=== PATIENT | female | born 1995 | race Hispanic/Latino ===

== ENCOUNTER 2019-03-02 09:34 | Emergency (ER) | payer MEDICAID, OTHER ==
[2019-03-02] MEDS ORDERED: METOCLOPRAMIDE 10 MG/2 ML VIAL ONE (09:47)
[2019-03-02] MEDS ORDERED: SODIUM CHLORIDE 0.9% 1000ML 1,000 ML IV ONE (09:48)
[2019-03-02] MEDS ORDERED: ACETAMINOPHEN 325 MG TAB ONE (09:48)
[2019-03-02 10:08] LABS: BASOPHILS % (AUTO) 0.8 % (0.0-5.0); HEMATOCRIT 41.4 % (36-48); LYMPHOCYTES % (AUTO) 31.6 % (21.0-51.0); MEAN CORPUSCULAR HEMOGLOBIN 32.1 pg (27.0-33.0); MEAN CORPUSCULAR HGB CONC 34.1 g/dL (32.0-36.0); MEAN CORPUSCULAR VOLUME 94.1 fL (79-99); MONOCYTES % (AUTO) 8.7 % (3.0-13.0); NEUTROPHILS % (AUTO) 56.9 % (40.0-77.0); PLATELET COUNT (AUTO) 245 K/uL (130-400); RED CELL DISTRIBUTION WIDTH 12.9 % (11.0-15.5)
[2019-03-02 10:23] LABS: CREATININE 0.6 mg/dL (0.5-1.5); POTASSIUM 3.7 mmol/L (3.5-5.1)
[2019-03-02 10:31] LABS: APPEARANCE,URINE Clear (CLEAR); BILIRUBIN,URINE Negative (NEGATIVE); COLOR,URINE Yellow (YELLOW); GLUCOSE, URINE (UA) Negative (NEGATIVE); KETONES,URINE Negative (NEGATIVE); LEUKOCYTE ESTERASE ,URINE Negative (NEGATIVE); NITRATE,URINE Negative (NEGATIVE); OCCULT BLOOD,URINE Negative (NEGATIVE); PH,URINE 8.5 (5.0-8.0); PROTEIN,URINE Negative (NEGATIVE); UROBILINOGEN,URINE 0.2 mg/dL (0.2-1.0)
[2019-03-02 10:51] LABS: ALBUMIN 3.9 g/dL (3.5-5.0); BILIRUBIN,TOTAL 0.5 mg/dL (0.2-1.0); TOTAL PROTEIN, SERUM 7.6 g/dL (6.0-8.3)
== END 2019-03-02 12:52 | disposition home or self-care (01) ==
LOC: EDH 09:34
DX: O26.891 Other specified pregnancy related conditions, first trimester (principal); G44.209 Tension-type headache, unspecified, not intractable; F45.8 Other somatoform disorders; R07.89 Other chest pain; R10.9 Unspecified abdominal pain; Z3A.01 Less than 8 weeks gestation of pregnancy
CPT/HCPCS: 36415; 76817; 80053; 81003; 83690; 84702; 85025; 93005; 96374; 99285; J2765; J7030

== ENCOUNTER 2019-10-05 17:47 | Observation (INO) | payer MEDICAID ==
[~2019-10-05] VITALS: Ht 152.4 cm; Wt 96.2 kg
[2019-10-05 19:02] LABS: APPEARANCE,URINE Clear (CLEAR); BILIRUBIN,URINE Negative (NEGATIVE); COLOR,URINE Yellow (YELLOW); GLUCOSE, URINE (UA) Negative (NEGATIVE); KETONES,URINE 40 mg/dL (NEGATIVE); LEUKOCYTE ESTERASE ,URINE Small (NEGATIVE); NITRATE,URINE Negative (NEGATIVE); OCCULT BLOOD,URINE Negative (NEGATIVE); PH,URINE 6.5 (5.0-8.0); PROTEIN,URINE Negative (NEGATIVE)
[2019-10-05] MEDS ORDERED: TERBUTALINE SULFATE VIAL 1MG/ML SQ ONE (19:16)
[2019-10-05] MEDS ORDERED: LACTATED RINGERS 1000ML 1,000 ML IV ONE (19:16)
[2019-10-05 19:28] LABS: BACTERIA,URINE Few /HPF (None Seen); MUCUS,URINE Few LPF (None Seen); RBC,URINE 0-1 /HPF (0-1); SQUAMOUS EPITHELIAL CELL,UR Moderate /HPF (0-2)
[2019-10-05] MEDS ORDERED: MAGNESIUM SULFATE 1,000 ML IV PRN (20:23)
[2019-10-05] MEDS ORDERED: AMPICILLIN 2GM+NS 100ML 100 ML IV ONE (20:27)
[2019-10-05] MEDS ORDERED: MAGNESIUM SULFATE 1,000 ML IV ONE (20:27)
[2019-10-05] MEDS ORDERED: MAGNESIUM 4GM PREMIX 100ML 100 ML IV ONE (20:27)
[2019-10-05] MEDS ORDERED: CALCIUM GLUCONATE 1 GM/10 ML VIAL IV PRN (20:30)
[2019-10-05] MEDS ORDERED: AMPICILLIN 2GM+NS 100ML 100 ML IV SCH (20:30)
[2019-10-05] MEDS ORDERED: TERBUTALINE SULFATE VIAL 1MG/ML SQ SCH (20:30)
[2019-10-05] MEDS ORDERED: MAGNESIUM 4GM PREMIX 100ML 100 ML IV SCH (21:00)
[2019-10-05] MEDS ORDERED: LACTATED RINGERS 1000ML 1,000 ML IV PRN (21:11)
[2019-10-05] MEDS ORDERED: ACETAMINOPHEN 325 MG TAB PO PRN (21:15)
== END 2019-10-05 23:58 | disposition left against medical advice (07) ==
LOC: EDH 17:47 → LDH 18:00
PROVIDERS: ADMIT Obstetrics & Gynecology; ATTEND Obstetrics & Gynecology
DX: O26.893 Other specified pregnancy related conditions, third trimester (principal); R10.2 Pelvic and perineal pain; Z3A.35 35 weeks gestation of pregnancy
CPT/HCPCS: 81001; 96365; 96367; 96372; 96375; 99284; G0378 ×6; J0290; J3105; J3475 ×2; J7120 ×2; 96360; 96361

== ENCOUNTER 2019-10-14 11:03 | Observation (INO) | payer MEDICAID ==
[~2019-10-14] VITALS: Ht 152.4 cm; Wt 95.7 kg
[2019-10-14] MEDS ORDERED: LACTATED RINGERS 1000ML 1,000 ML IV PRN (12:09)
[2019-10-14 12:12] VITALS: BP 120/72
== END 2019-10-14 12:35 | disposition home or self-care (01) ==
LOC: EDH 11:03 → LDH 11:35
PROVIDERS: ADMIT Obstetrics & Gynecology; ATTEND Obstetrics & Gynecology
DX: O60.03 Preterm labor without delivery, third trimester (principal); Z3A.36 36 weeks gestation of pregnancy
CPT/HCPCS: 96360; 99284; G0378; J7120

== ENCOUNTER 2019-10-27 22:00 | Inpatient (IN) | payer MEDICAID ==
[~2019-10-27] VITALS: Ht 152.4 cm; Wt 98.0 kg
[2019-10-27 22:37] LABS: APPEARANCE,URINE Clear (CLEAR); BILIRUBIN,URINE Negative (NEGATIVE); COLOR,URINE Yellow (YELLOW); GLUCOSE, URINE (UA) Negative (NEGATIVE); KETONES,URINE Negative (NEGATIVE); LEUKOCYTE ESTERASE ,URINE Small (NEGATIVE); NITRATE,URINE Negative (NEGATIVE); OCCULT BLOOD,URINE Negative (NEGATIVE); PROTEIN,URINE Negative (NEGATIVE)
[2019-10-27 22:52] LABS: MEAN CORPUSCULAR HEMOGLOBIN 27.9 pg (27.0-33.0); MEAN CORPUSCULAR HGB CONC 32.4 g/dL (32.0-36.0); MEAN CORPUSCULAR VOLUME 86.2 fL (79-99); RED BLOOD CELL COUNT(AUTO) 4.41 MIL/uL (4.00-5.50); WHITE BLOOD COUNT (AUTO) 9.4 K/uL (4.8-10.8)
[2019-10-27 22:57] LABS: BACTERIA,URINE Rare /HPF (None Seen); MUCUS,URINE Moderate LPF (None Seen); RBC,URINE None Seen /HPF (0-1); TRANSITIONAL EPI CELLS,URINE Few /HPF (None Seen); WBC,URINE 0-1 /HPF (0-1)
[2019-10-27 22:58] LABS: HYALINE CASTS, URINE 0-1 /LPF (0-1 /LPF)
[2019-10-28] MEDS ORDERED: ACETAMINOPHEN 325 MG TAB ONE (00:51)
[2019-10-28] MEDS: LACTATED RINGERS 1000ML 1,000 ML IV PRN ×2 (00:54→05:17)
[2019-10-28] MEDS ORDERED: ACETAMINOPHEN 325 MG TAB PO ONE (01:00)
[2019-10-28] MEDS ORDERED: CEFAZOLIN SODIUM 1 GM VIAL IVP PRN (01:15)
[2019-10-28] MEDS ORDERED: LACTATED RINGERS 1000ML 1,000 ML IV SCH (01:15)
[2019-10-28] MEDS ORDERED: CALDOLOR 800MG+NS 250ML 250 ML IV PRN (01:15)
[2019-10-28] MEDS ORDERED: MEPERIDINE-PF 50 MG/ML SYG IVP ONE (02:30)
[2019-10-28] MEDS ORDERED: PROMETHAZINE HCL 25 MG/ML 1ML AMPULE IM SCH (02:30)
[2019-10-28 03:37] LABS: AMPHET/METH SCREEN,URINE NEGATIVE (NEGATIVE); BARBITURATE SCREEN, URINE NEGATIVE (NEGATIVE); BENZODIAZEPINES SCREEN,URINE NEGATIVE (NEGATIVE); CANNABINOID SCREEN,URINE NEGATIVE (NEGATIVE); COCAINE SCREEN,URINE NEGATIVE (NEGATIVE); OPIATE SCREEN,URINE NEGATIVE (NEGATIVE); PHENCYCLIDINE SCREEN,URINE NEGATIVE (NEGATIVE)
[2019-10-28] MEDS ORDERED: DEXAMETHASONE SOD PHOSPHATE 10MG/ML 1ML VIAL ONE (09:18)
[2019-10-28] MEDS ORDERED: PHENYLEPHRINE HCL 10 MG/ML 1ML VIAL IV ONE (09:18)
[2019-10-28] MEDS ORDERED: ONDANSETRON HCL 4 MG/2 ML VIAL ONE (09:19)
[2019-10-28] MEDS ORDERED: OXYTOCIN 10 USP UNITS/ML ONE ×2 (09:19→10:04)
[2019-10-28] MEDS ORDERED: EPHEDRINE SULFATE 50 MG/ML AMPULE ONE (09:19)
[2019-10-28] MEDS ORDERED: DURAMORPH PF1 MG/ML 10ML AMP IV ONE (09:19)
[2019-10-28] MEDS ORDERED: CEFAZOLIN SODIUM 1 GM VIAL IVP ONE (09:26)
[2019-10-28] MEDS ORDERED: PROMETHAZINE HCL 25 MG/ML 1ML AMPULE IM PRN (10:30)
[2019-10-28] MEDS ORDERED: SODIUM CHLORIDE 0.9% 10 ML VIAL IVP PRN (10:30)
[2019-10-28] MEDS ORDERED: DEXTROSE 5 %-0.45 % NACL 1,000 ML IV PRN (10:30)
[2019-10-28] MEDS ORDERED: MEPERIDINE-PF 75 MG/ML SYG IM PRN (10:30)
[2019-10-28] MEDS ORDERED: OXYTOCIN-LR 20 UNITS/1000 ML 1,000 ML IV PRN (10:30)
[2019-10-28 11:55] LABS: RAPID PLASMA REAGIN NONREACTIVE (NONREACTIVE)
[2019-10-28 11:59] VITALS: BP 108/56
[2019-10-28] MEDS ORDERED: PNV1TABL17 PO (12:46)
--- NOTE | 2019-10-28 15:40 | NUR ---
PERICARE GIVEN AT THIS TIME ASSISTED BY CUONG OTT. FUNDUS FIRM, BLEEDING SCANT, NO CLOTS EXPELLED. PATIENT LIFTED HIPS WITHOUT DIFFICULTY. NO PAIN REPORTED AT THIS TIME.
[2019-10-28 16:49] VITALS: BP 110/54
[2019-10-28] MEDS: CALDOLOR 800MG+NS 250ML 250 ML IV SCH (18:06)
[2019-10-28 19:27] VITALS: BP 110/72
[2019-10-28] MEDS ORDERED: EPHEDRINE SULFATE 50 MG/ML AMPULE IVP PRN (19:45)
[2019-10-28] MEDS ORDERED: NALOXONE HCL 0.4 MG/1 ML ML IVP PRN ×3 (19:45)
[2019-10-28] MEDS ORDERED: ONDANSETRON HCL 4 MG/2 ML VIAL IVP PRN (19:45)
[2019-10-28] MEDS ORDERED: DiphenhydrAMINE HCL 50 MG/ML VIAL IVP PRN (19:45)
--- NOTE | 2019-10-28 23:17 | NUR ---
PT'S REPORT GIVEN TO Oskar MENON RN. PT DENIED PAIN AND DISCOMFORT.
--- NOTE | 2019-10-28 23:24 | NUR ---
RECEIVED REPORT FROM GINETTE BALDERAS; [employer]LO[employer].
[2019-10-29] VITALS: BP 102/56
--- NOTE | 2019-10-29 00:30 | NUR ---
pt. is her baby at this time. Good bonding noted. no complained of pain at this time. pt. was made aware of the CBC in the morning and the Caldolor #3 dose will be given at 0200.
[2019-10-29] MEDS: CALDOLOR 800MG+NS 250ML 250 ML IV SCH (02:03)
--- NOTE | 2019-10-29 02:03 | NUR ---
PT. STOOD UP AT THE SIDE OF THE BED, DEEP BREATH AND STEP FORWARD ALTERNATE WITH THE OTHER LEG FOR AT LEAST 5 MINS. PT. TOLERATED WELL.
--- NOTE | 2019-10-29 02:03 | NUR ---
CALDOLOR 800 MG. IVPB. THIS IS THE LAST OR THIRD DOSE GIVEN. PT. TOLERATED WELL.
--- NOTE | 2019-10-29 02:10 | NUR ---
ASSISTED THE PT. TO SIT UP AND DANGLE HER LEGS AT THE SIDE OF THE BED. PT. TOLERATED WELL.
--- NOTE | 2019-10-29 02:20 | NUR ---
SMALL LOCHIA RUBRA NOTED WHILE PT. STOOD UP. PAMELA CARE DONE. NO BLOOD CLOTS. PAMELA PAD APPLIED. PT. FELT COMFORTABLE AT THIS TIME. PT. VERBALIZED THAT HER PAIN IS MILD AND SHE DOESN'T WANT PAIN MEDICINE AT THIS TIME.
--- NOTE | 2019-10-29 03:00 | NUR ---
INCENTIVE SPIROMETER GIVEN TO PT. AND EXPLAINED THE RATIONALE OR IMPORTANCE OF DOING IT. PT. VERBALIZED UNDERSTANDING. VOLUME OF AIR INHALED IS 2500 CC. PT. TOLERATED WELL.
[2019-10-29 04:00] VITALS: BP 108/62
[2019-10-29 07:08] LABS: HEMATOCRIT 30.1 % (36-48); MEAN CORPUSCULAR HEMOGLOBIN 28.4 pg (27.0-33.0); MEAN CORPUSCULAR HGB CONC 32.2 g/dL (32.0-36.0); MEAN CORPUSCULAR VOLUME 88.3 fL (79-99); RED BLOOD CELL COUNT(AUTO) 3.41 MIL/uL (4.00-5.50); RED CELL DISTRIBUTION WIDTH 13.1 % (11.0-15.5); WHITE BLOOD COUNT (AUTO) 15.4 K/uL (4.8-10.8)
[2019-10-29 07:14] LABS: HEPATITIS Bs ANTIGEN SCREEN P Negative (Negative)
[2019-10-29 07:45] VITALS: BP 111/60
--- NOTE | 2019-10-29 08:00 | NUR ---
ELIMINATION F/C REMOVED PER ASEPTIC TECHNIQUE C 500CC CLEAR URINE DISCARDED.
--- NOTE | 2019-10-29 08:10 | NUR ---
NUTRITION PT GIVEN REGULAR FOOD TRAY AND TAKEN WELL.
--- NOTE | 2019-10-29 08:30 | NUR ---
ELIMINATION/COMFORT PT ASSISTED TO BR. VOIDED 200CC CLEAR URINE. PADS CHANGED. PT ASSISTED TO BEDSIDE CHAIR. TOLERATED AMBULATION WELL.
[2019-10-29] MEDS ORDERED: HYDROCODONE/ACETAMINOPHEN 5/325 MG TAB PO PRN (09:15)
[2019-10-29] MEDS ORDERED: BISACODYL 10 MG SUPP.RECT RC PRN (09:15)
[2019-10-29] MEDS ORDERED: IBUPROFEN 800 MG TAB PO SCH ×2 (09:15→10:30)
[2019-10-29] MEDS ORDERED: ACETAMINOPHEN EXTRA STRENGTH 500 MG TABLET PO PRN (09:15)
[2019-10-29] MEDS ORDERED: SIMETHICONE 80 MG TAB.CHEW PO PRN (09:15)
[2019-10-29] MEDS ORDERED: ACETAMINOPHEN-CODEINE 300/30MG TAB PO PRN (09:15)
[2019-10-29] MEDS ORDERED: DOCUSATE SODIUM 100 MG CAP PO ONE (09:27)
[2019-10-29] MEDS ORDERED: IBUPROFEN 800 MG TAB ONE (09:27)
--- NOTE | 2019-10-29 09:30 | NUR ---
SCHEDULED MEDICATIONS GIVEN
[2019-10-29 11:59] VITALS: BP 115/58
--- NOTE | 2019-10-29 13:05 | NUR ---
Safety pt discharged per w/c c baby in arms to private car. Pt tolerated well.
[2019-10-29] MEDS ORDERED: DOCUSATE SODIUM 100 MG CAP PO SCH (21:00)
== END 2019-10-29 13:12 | disposition home or self-care (01) | DRG 539 ==
LOC: EDH 22:00 → LDH 22:17 → WSH 10-28 11:55
PROVIDERS: ADMIT Obstetrics & Gynecology; ATTEND Obstetrics & Gynecology
PROC: 0UB70ZZ Excision of Bilateral Fallopian Tubes, Open Approach (ICD-10-PCS; 2019-10-28)
PROC: 10D00Z1 Extraction of Products of Conception, Low, Open Approach (ICD-10-PCS; principal; 2019-10-28 09:00)
DX: O26.893 Other specified pregnancy related conditions, third trimester (principal); O69.81X0 Labor and delivery complicated by cord around neck, without compression, not applicable or unspecified; Z30.2 Encounter for sterilization; Z37.0 Single live birth; Z3A.38 38 weeks gestation of pregnancy
CPT/HCPCS: 36415; 59510; 80305; 81001; 85027; 86592; 86701; 86850; 86900; 86901; 87340; 87390; 88302; A4344; G0378; J0690; J1100; J1741; J2274; J2370; J2405; J2590; J3490; J7120

== ENCOUNTER 2025-04-14 01:38 | Emergency (ER) | payer SELFPAY ==
[~2025-04-14] VITALS: Ht 152.4 cm; Wt 99.8 kg
[2025-04-14 01:39] VITALS: BP 134/65; PULSE 84; RESP 18; TEMP 97.5
--- NOTE | 2025-04-14 01:41 | NUR ---
UA CUP PROVIDED
--- NOTE | 2025-04-14 02:54 | ERN ---
General Chief Complaint: Back Pain-No Injury Stated Complaint: BACK PAIN Time Seen by MD: 01:40 Time Seen by Midlevel: 01:40 Source: patient History of Present Illness Initial Comments Patient is a 29-year-old female presenting to the emergency department with left gluteal pain that radiates down to her left leg and wraps around to the front of her left thigh. Denies any injury to the area. Denies falling. Denies any other symptoms at this time Allergies: Coded Allergies: No Known Drug Allergies (Unverified Allergy, Unknown, 10/05/19) Home Meds Reported Medications Pnv Cmb#21/Iron/Folic Acid ( Complete Caplet) 1 Each Tablet, 1 EACH PO DAILY, TAB 10/28/19 Past Medical History Past Medical History: No Pertinent History Past Surgical History: None Female( History) LMP: Mar 29, 2025 ROS Dictation CONSTITUTIONAL: Negative except for HPI HEAD/FACE: Negative except for HPI EENT: Negative except for HPI RESPIRATORY: Negative except for HPI GASTROINTESTINAL/ABDOMINAL: Negative except for HPI GENITOURINARY: Negative except for HPI MUSCULOSKELETAL: Negative except for HPI INTEGUMENTARY: Negative except for HPI NEUROLOGICAL/PSYCH: Negative except for HPI HEMATOLOGIC/LYMPHATIC: Negative except for HPI All Systems Negative, Except as noted above. 13 point review of systems assessed and all negative except for above. Physical Exam Physical Exam Dictation Vital Signs reviewed General Appearance: Alert, oriented x 3, no acute distress, well developed, nourished. Head and Face: non-traumatic. Eyes: PERRL, pink conjunctivas, eyelid no trauma, anterior chamber with arcus senilis. Ears: Pinnas intact and no signs of trauma or erythema ear canals clear and no d ischarge TM no erythema Nose: No discharge, no bleeding. Oropharynx: Mouth normal, tongue pink, pharynx clear,no erythema, tonsils no exudates, no abscesses noted, mucous membrane moist Neck: Supple, non-tender, no thyromegaly, no masses, no JVD, no bruits Breast:Deferred Chest:No tenderness, no crepitus, no paradoxical movement, no retractions Lungs:Clear, well-ventilated, symmetric, no rales, no wheezing, no rhonchi, no stridor, good breath sounds bilaterally Heart: Regular rate, regular rhythm, no murmur, no gallops Vascular: no peripheral edema, Abdomen: Soft, positive bowel sounds, nondistended, no guarding, nontender, no rebound, no masses no hepatomegaly, no splenomegaly, no Lr's sign, no hernias. Rectal: Deferred Genital: Deferred Neurological: Normal speech, motor function intact, sensory function intact Musculoskeletal: Neck nontender, full range of motion, back nontender, full range of motion, Extremities: nontender, full range of motion , positive straight leg test Skin: Color pink, dry, no turgor, no rash, no lacerations, no abrasions, no contusions. Lymphatic: Deferred MDM MDM: Differential diagnosis: Sciatica, lumbar strain, urinary tract infection There are no social concerns with this patient. Prescription drug management Prescriptions will include: Toradol and Robaxin Medical management and examination interpretation discussions were had by me with other qualified healthcare professionals as indicated for the patient's care. ED Course Orders Procedure Category Date Status Time Ketorolac PHA 04/14/25 Logged Tromethamine 30mg/Ml 03:00 Orphenadrine Citrate PHA 04/14/25 Logged (Norflex) 03:00 Morphine 4mg Syg PHA 04/14/25 Logged (Morphine 4mg Syg) 03:00 Vital Signs Date Time Temp Pulse Resp B/P (MAP) Pulse Ox O2 Delivery O2 Flow Rate FiO2 04/14/25 01:39 97.5 84 18 134/65 99 Room Air DX & DISP Disposition: Discharge Departure Impression: Primary Impression: Sciatica, left side Condition: Stable Scripts Methocarbamol (Robaxin) 750 Mg Tab 1 TAB PO BID for 5 Days, #10 TAB 0 Refills Prov: HOLDEN HICKMAN PAC 04/14/25 Ketorolac Tromethamine (Ketorolac Tromethamine) 10 Mg Tablet 1 TAB PO TID for pain for 5 Days, #15 TAB 0 Refills Prov: HOLDEN HICKMAN PAC 04/14/25 Referrals: SELF,REFERRAL (PCP) Time of Disposition: 02:50 I have reviewed the case, and I agree with, Diagnosis and Plan I performed the substantive portion of the visit. I have reviewed and personally made and approve the management plan that is documented in the note by myself or the LEON. I acknowledge for responsibility for the patient's management plan. HOLDEN HICKMAN PAC Apr 14, 2025 02:54
--- NOTE | 2025-04-14 02:56 | NUR ---
DISCHARGE DELAYED DUE TO PENDING MEDICATIONS ORDERED AT 0248
--- NOTE | 2025-04-14 03:12 | NUR ---
BED PLACED IN LOW POSITION, ONE RAIL UP PT ORIENTED TO ROOM, CALL LIGHT WITHIN REACH
[2025-04-14] MEDS: ORPHENADRINE 60MG/2ML IM ONE (03:26)
== END 2025-04-14 03:44 | disposition home or self-care (01) ==
LOC: EDH 01:38
DX: M54.32 Sciatica, left side (principal)
CPT/HCPCS: 99284; 96372; J1885; J2270; J2360

== ENCOUNTER 2025-04-15 17:56 | Emergency (ER) | payer SELFPAY ==
[~2025-04-15] VITALS: Ht 152.4 cm; Wt 99.8 kg
--- NOTE | 2025-04-15 18:05 | ERN ---
General Chief Complaint: Back Pain or Injury Stated Complaint: BACK PAIN Time Seen by MD: 17:58 Source: patient History of Present Illness Initial Comments Patient is a 29-year-old female coming in complaining of left lower back pain has a history of sciatica. States that she has received medication but last time the injection that she received helped her only temporarily. Patient is here for further evaluation. Allergies: Coded Allergies: No Known Drug Allergies (Unverified Allergy, Unknown, 10/05/19) Home Meds Active Scripts Methocarbamol (Robaxin) 750 Mg Tab, 1 TAB PO BID for 5 Days, #10 TAB 0 Refills Prov:HOLDEN HICKMAN [facility] 04/14/25 Ketorolac Tromethamine (Ketorolac Tromethamine) 10 Mg Tablet, 1 TAB PO TID for pain for 5 Days, #15 TAB 0 Refills Prov:HOLDEN HICKMAN [facility] 04/14/25 Reported Medications Pnv Cmb#21/Iron/Folic Acid ( Complete Caplet) 1 Each Tablet, 1 EACH PO DAILY, TAB 10/28/19 Past Medical History Past Medical History: No Pertinent History Past Surgical History: None ROS Dictation CONSTITUTIONAL: No chills, no fever, no weakness, no diaphoresis, no malaise. HEAD/FACE: No signs of trauma. EENT: No eye pain, no blurred vision, no tearing, no double vision, no ear pain, no ear discharge, no nose pain, no nasal congestion, no throat pain, no throat swelling, no mouth pain. RESPIRATORY: No cough, no orthopnea, no SOB, no stridor, no wheezing. CARDIOVASCULAR: No chest pain, no edema, no palpitations, no syncope. GASTROINTESTINAL/ABDOMINAL: No abdominal pain, no constipation, no diarrhea, no nausea, no vomiting. GENITOURINARY: No abnormal discharge, no dysuria, no frequent urination, no hematuria. No complaints of pain in the genitals. MUSCULOSKELETAL: No back pain, no gout, no joint pain, no joint swelling, no muscle pain, no muscle stiffness, no neck pain. INTEGUMENTARY: No change in color, no change in hair/nails, no dryness, no lesion, no lumps, no rash. NEUROLOGICAL/PSYCH: No anxiety, not depressed, no emotional problem, no h eadache, no numbness, no pre-existing deficit, no history of seizures, no tremors, no weakness. HEMATOLOGIC/LYMPHATIC: Not anemic, no history of blood clots, no apparent bleeding, no bruising, glands not swollen. All Systems Negative, Except as Noted. She has been Physical Exam Physical Exam Dictation VITAL SIGNS: Reviewed. GENERAL APPEARANCE: Alert, oriented x3, no acute distress, obese. HEAD AND FACE: Non-traumatic. EYES: PERRL, pink conjunctivas, eyelid no trauma, anterior chamber clear. EARS: Pinnas intact and no signs of trauma or erythema. Ear canals clear and no discharge. TMs no erythema. NOSE: No discharge, no bleeding. OROPHARYNX: Mouth normal, teeth no caries, tongue pink. Pharynx clear, no erythema. Tonsils no exudates, no abscesses noted. Mucous membrane moist. NECK: Supple, non-tender, no thyromegaly, no masses, no JVD, no bruits. BREAST: Deferred. CHEST: No tenderness, no crepitus, no paradoxical movement, no retractions. LUNGS: Clear, well-ventilated, symmetric, no rales, no wheezing, no rhonchi, no stridor, good breath sounds bilaterally. HEART: Regular rate, regular rhythm, no murmur, no gallops. VASCULAR: No peripheral edema. ABDOMEN: Soft, positive bowel sounds, nondistended, no guarding, nontender, no rebound, no masses no hepatomegaly, no splenomegaly, no Lr's sign, no hernias. RECTAL: Deferred. GENITAL: Deferred. NEUROLOGICAL: Normal speech, gross motor function intact, gross sensory function intact. MUSCULOSKELETAL: Neck nontender, full range of motion, back nontender, full range of motion. EXTREMITIES: Nontender, full range of motion. Left lower gluteal pain, left- sided sciatica SKIN: Color pink, dry, no turgor, no rash, no lacerations, no abrasions, no contusions. LYMPHATICS: Deferred. Results Laboratory and Microbiology Lab and Micro Result Laboratory Tests Test 04/15/25 19:25 Urine HCG, Qualitative NEGATIVE (NEGATIVE) Labs Reviewed?: Yes MDM MDM: Differential diagnosis: Left-sided sciatica, back pain, Rationale: Tests considered and ordered secondary to shared decision making include: Previous outside records reviewed: Old ER visits. Risk of complication and/or morbidity or mortality of patient management: None Medications-Per medication reconciliation Need for hospitalization: Patient does not meet criteria for hospitalization. Need for emergency major/minor surgery: No Patient is a 29-year-old gentleman coming in complaining of left lower back pain. Patient does has a history of left-sided sciatica was given medication we will be discharged in stable condition I did advised her appropriate follow up with PCP for long-term management. ED Course Orders Procedure Category Date Status Time ,Urine Test LAB 04/15/25 Complete 18:01 Gabapentin 100 Mg Cap PHA 04/15/25 In Process (Neurontin 100 Mg 18:30 Orphenadrine Citrate PHA 04/15/25 In Process (Norflex) 20:00 Triamcinolone Acet PHA 04/15/25 In Process 40mg/Ml 1ml (Kenalog 20:00 Current Medications Medications (Trade) Dose Ordered Sig/Gordon Route PRN Reason Start Time Stop Time Status Last Admin Dose Admin Gabapentin (NEURontin 100 mg CAP) 100 mg ONCE PO 04/15/25 18:30 05/15/25 18:29 04/15/25 18:53 Orphenadrine Citrate (Norflex) 60 mg ONCE IM 04/15/25 20:00 04/15/25 23:30 04/15/25 20:07 Triamcinolone Acetonide (Kenalog 40) 40 mg ONCE SQ 04/15/25 20:00 04/15/25 23:30 04/15/25 20:07 Vital Signs Date Time Temp Pulse Resp B/P (MAP) Pulse Ox O2 Delivery O2 Flow Rate FiO2 04/15/25 19:15 98.4 66 20 128/61 99 Room Air* 0 21 04/15/25 18:36 98.4 64 18 125/69 100 Room Air* 0 21 04/15/25 17:57 98.1 80 18 131/59 100 Room Air DX & DISP Disposition: Discharge Departure Impression: Primary Impression: Sciatica, left side Condition: Stable Scripts Prednisone (Prednisone) 20 Mg Tablet 1 TAB PO AD for 6 Days, #14 TAB 0 Refills TAKE 1 TAB BY MOUTH THREE TIMES PER DAY X3 DAYS, THEN TAKE 1 TAB BY MOUTH TWICE A DAY X2 DAYS, THEN TAKE 1 TAB BY MOUTH ONCE A DAY X1 DAY. Prov: RIO FROST MD 04/15/25 Additional Instructions: FOLLOW-UP WITH PRIMARY CARE PROVIDER IN 1 TO 2 DAYS. TAKE MEDICATIONS DIRECTED HERE IN THE EMERGENCY ROOM. OKAY TO CONTINUE HOME MEDICATIONS UNLESS OTHERWISE DISCUSSED DURING YOUR VISIT IN THE EMERGENCY ROOM TODAY. RETURN TO YOUR NEAREST EMERGENCY ROOM IF SYMPTOMS WORSEN OR IF THERE IS NO IMPROVEMENT. CALL 911 IF YOU NEED IMMEDIATE ASSISTANCE. TAKE TYLENOL [id number] NEEDED AND IF NO CONTRAINDICATIONS ARE PRESENT. INCREASE ORAL HYDRATION. A WOUND CULTURE OR URINE CULTURE WAS ORDERED HERE IN THE EMERGENCY ROOM DEPARTMENT PLEASE FOLLOW-UP WITH PRIMARY CARE PROVIDER AND ADVISE THEM TO GET REPORTS FROM OUR FACILITY. IF YOU HAD ANY ESPERANZA WRAP/SPLINTS THAT WERE APPLIED HERE, PLEASE DO NOT REMOVE THEM UNTIL YOU SEE YOUR PRIMARY CARE OR SPECIALTY. Referrals: Referrals: SELF,REFERRAL (PCP) DUNCAN MARROQUIN MD, LUIS A MD Time of Disposition: 18:05 JUSTYN FATIMA MD Apr 15, 2025 18:05 RIO FROST MD Apr 15, 2025 20:22
[2025-04-15] MEDS: ORPHENADRINE 60MG/2ML IM SCH (20:07)
[2025-04-15] MEDS: TRIAMCINOLONE ACETONIDE 40 MG/ML 1ML VIAL SQ SCH (20:07)
[2025-04-15 20:37] VITALS: BP 126/67; PULSE 68; RESP 19; TEMP 98.6; O2SAT 98
== END 2025-04-15 20:45 | disposition home or self-care (01) ==
LOC: EDH 17:56
DX: M54.32 Sciatica, left side (principal); Z79.899 Other long term (current) drug therapy
CPT/HCPCS: 99284; 81025; 96372 ×2; J3301; J2360